=== PATIENT | female | born 1985 | race African-American/Black ===

== ENCOUNTER 2018-11-21 06:51 | Day surgery (SDC) | payer OTHER ==
[2018-11-21] VITALS (14 sets, daily range): BP systolic 111–124; BP diastolic 70–90; PULSE 65–76; RESP 13–22; Ht 158.8 cm; Wt 91.2 kg
[~2018-11-21] VITALS: Ht 158.8 cm; Wt 91.2 kg
[2018-11-21] MEDS ORDERED: LACTATED RINGER'S 1,000 ML IV SCH (08:00)
--- NOTE | 2018-11-21 08:08 | HPN ---
Date/Time of Note Date/Time of Note DATE: 11/21/18 TIME: 08:08 Interval H&P Admission Note Pt. seen H&P reviewed: No system changes JOSE EDEN MD Nov 21, 2018 08:08
--- NOTE | 2018-11-21 09:30 | PREAC ---
Date/Time of Note Date/Time of Note DATE: 11/21/18 TIME: 09:29 Anesthesia Eval and Record Evaluation Time Pre-Procedure Interview DATE: 11/21/18 TIME: 09:29 Age 33 Sex female NPO: 8 hrs Preoperative diagnosis Right knee bucket handle lateral meniscus tear Planned procedure Operative arthroscopy, medial and lateral meniscal repair, chondroplasty Past Medical History Past Medical History: Includes Pulm: Asthma GI: Obesity Surgery & Anesthesia Issues No known issue Meds Anticoagulation: No Beta Andreina within 24 hr: No Reason Beta Andreina not given: Pt. not on B-Andreina No Active Prescriptions or Reported Meds Current Medications Lactated Ringer's 1,000 ml @ 25 mls/hr Q24H IV Last administered on 11/21/18at 08:11; Admin Dose 25 MLS/HR; Start 11/21/18 at 08:00 Meds reviewed: Yes Allergies Coded Allergies: No Known Drug Allergies (Verified Allergy, Unknown, 11/17/18) Allergies Reviewed: Yes Labs/Studies Labs Reviewed: Reviewed by anesthesiologist test: Negative Pre-procedure Exam Last vitals Vital Signs Date Temp Pulse Resp B/P (MAP) Pulse Ox O2 O2 Flow FiO2 Time Delivery Rate 11/21/18 97.6 76 20 124/90 Room Air 08:02 (101) Airway: Adequate mouth opening Mallampati: Mallampati II Teeth: Normal Lung: Normal Heart: Normal ASA Physical Status ASA physical status: 2 Emergency: None Planned Anesthetic General/MAC: LMA Planned Pain Management Parenteral pain med Pre-operative Attestations Prior to commencing anesthesia and surgery, the patient was re-evaluated, there was verification of: *The patient's identity *The results of appropriate recent lab work and preoperative vital signs *The above evaluation not changing prior to induction *Anesthetic plan, risk benefits, alternative and complications discussed with patient/family; questions answered; patient/family understands, accepts and wishes to proceed. DAMIÁN BARAJAS MD Nov 21, 2018 09:30
[2018-11-21] MEDS ORDERED: ROPIVACAINE 0.5 % 30 ML VIAL ONE (10:01)
[2018-11-21] MEDS ORDERED: MEPERIDINE 100 MG INJ ONE (10:15)
[2018-11-21] MEDS ORDERED: CEFAZOLIN 1 GM INJ ONE (10:15)
[2018-11-21] MEDS ORDERED: PROPOFOL 20 ML ONE (10:15)
[2018-11-21] MEDS ORDERED: LIDOCAINE 2% (SDV) 5 ML INJ ONE (10:15)
[2018-11-21] MEDS ORDERED: ONDANSETRON 4 MG INJ ONE (10:16)
[2018-11-21] MEDS ORDERED: METOCLOPRAMIDE 10 MG INJ ONE (10:16)
[2018-11-21] MEDS ORDERED: MEPERIDINE 25 MG INJ IV PRN (11:00)
[2018-11-21] MEDS ORDERED: EPHEDrine 25 MG/5 ML SYG IV PRN (11:00)
[2018-11-21] MEDS ORDERED: METOCLOPRAMIDE 10 MG INJ IV PRN (11:00)
[2018-11-21] MEDS ORDERED: OXYCODONE/ACETAMINOPHEN (5/325) TAB PO PRN ×2 (11:00)
[2018-11-21] MEDS ORDERED: ONDANSETRON 4 MG INJ IV PRN (11:00)
[2018-11-21] MEDS ORDERED: LABETALOL HCL 20MG INJ IV PRN (11:00)
[2018-11-21] MEDS ORDERED: HYDROmorphONE 1 MG/5 ML IV SYRINGE IV PRN ×3 (11:00)
[2018-11-21] MEDS ORDERED: MIDAZOLAM 1 MG/ML 2 ML INJ IV PRN (11:00)
[2018-11-21] MEDS ORDERED: FENTAnyl 50 MCG/ML VIAL IV PRN ×3 (11:00)
[2018-11-21] MEDS ORDERED: hydrALAzine 20 MG INJ IV PRN (11:00)
[2018-11-21] MEDS ORDERED: DIPHENHYDRAMINE 50 MG INJ IV PRN (11:00)
[2018-11-21] MEDS ORDERED: morphine 2 MG INJ IV PRN (13:00)
[2018-11-21] MEDS ORDERED: KETOROLAC 30 MG INJ IV SCH (13:00)
--- NOTE | 2018-11-21 13:37 | PAC ---
Date/Time of Note Date/Time of Note DATE: 11/21/18 TIME: 13:36 Post-Anesthesia Notes Post-Anesthesia Note Last documented vital signs Vital Signs Date Temp Pulse Resp B/P (MAP) Pulse Ox O2 O2 Flow FiO2 Time Delivery Rate 11/21/18 70 15 119/75 98 Room Air 12:59 (90) 11/21/18 98.0 12:13 11/21/18 8.0 12:03 Activity: WNL Respiratory function: WNL Cardiovascular function: WNL Mental status: Baseline Pain reasonably controlled: Yes Hydration appropriate: Yes Nausea/Vomiting absent: Yes Comments BT: 98.4 DAMIÁN BARAJAS MD Nov 21, 2018 13:37
--- NOTE | 2018-11-28 12:21 | QN ---
Documentation Job number: [id number] JOSE EDEN MD Nov 28, 2018 12:21
--- NOTE | 2018-11-28 18:54 | OPR ---
DATE OF OPERATION: 11/21/2018 PREOPERATIVE DIAGNOSIS: Right knee bucket handle lateral meniscus tear. POSTOPERATIVE DIAGNOSIS: Right knee bucket handle lateral meniscus tear. OPERATION PERFORMED: Right knee arthroscopy with lateral meniscal repair, chondroplasty. SURGEON: Finn Eden MD SCIENTIST/ENGINEER: None. ANESTHESIA: General. IMPLANTS: Meniscal cinch and PRP Spun at 6% Hct TT: 61 hour at 200 mmHg. INDICATIONS: The patient is a 33-year-old female who sustained a right knee bucket handle lateral meniscal tear. The knee is now currently locked and unable to range of motion. Her knee is dry. Risk Note: Patient was explained the risks and benefits of surgery and the patient's nav[place] language including not limited to infection, bleeding, injury to blood vessels, nerves, ligaments or tendons. Risks of anesthesia, deep vein thrombosis and need for reduce future surgery. Patient acknowledged these risk by signing the surgical consent form. OPERATIVE NOTE: The correct operative site was noted and marked in the preoperative holding area. The patient was then brought back into the operative theater, placed supine on the operative table. Right knee was examined under anesthesia. Range of motion was 0-120. There is no varus or valgus or anterior or posterior instability. There is crepitus noticed at the patellofemoral joint. Tourniquet was then placed on the operative extremity thigh non-sterilely. Patient was then given preoperative antibiotics and then prepped and draped in normal sterile fashion. A timeout was taken and all parties in the room agreed it was the correct patient, correct extremity and correct procedure. Standard anterior lateral portal was created and the knee joint was entered with a blunt tipped trocar, followed by 30 arthroscope. Inflow was achieved with a pump and the pressure maintained at approximately 50 mmHg. A routine arthroscopic surgery was performed. Suprapatella pouch was unremarkable. The undersurface of the patella showed minimal chondromalacia The medial and lateral gutters were visualized. There were no loose bodies seen. There is an inflamed hypertrophic plica noted in the anterior and superior medial aspect of the knee. The popliteus hiatus was entered and was normal. Lateral compartment was entered and grade 1 chondromalacia was seen on the lateral tibial plateau and femoral condyle. Scope was then brought into the intercondylar notch and an anteromedial portal was made. The lateral meniscus was flipped into the intercondylar notch. Shaver was brought into the knee and small amount of fat pad and scar tissue was initially gently debrided. The anterior cruciate ligament was intact and probed. The knee was brought into a valgus position and the medial compartment was entered. The articular surface of the medial femoral condyle and medial tibial plateau revealed minimal chondromalacia. Chondroplasty was then carried out along the weightbearing aspect of the medial femoral condyle, medial tibial plateau, taking care to remove only loose articular cartilage debris and preserve functional articular cartilage. The lateral compartment was reentered and the loose chondral debris was debrided with motorized shaver. The lateral meniscus was then probed and reduced with an obturator back into its lateral compartment. The meniscus was torn off the capsule and the capsular rim was rasped. It was then reduced and held in position with an 0 PDS suture. It was then repaired with a Ceterix meniscal repair device and an Arthrex meniscal cinch device. The motorized shaver and basket biters were used to smooth the remaining meniscal rim, with care to maintain the peripheral meniscal rim. A probe was introduced and this was carefully probed and was found to be stable. Attention was then directed back to the patella femoral joint and a chondroplasty was carried out along the weightbearing aspect of the trochlea and undersurface of the patella to again remove loose debris and maintain functional active articular cartilage. The knee was then irrigated with additional 2 L of lactated Ringers solution. Excess fluid was then drained. Range of motion was then attempted showing 0- 125 degrees of motion The portal sites were closed with 4-0 Monocryl and Steri-Strips and dressed with Xeroform and triple antibiotic ointment. The knee was then injected with platelet rich plasma spun at 6% hematocrit at the site of the meniscal repair.. A platelet poor soaked sterile dressing was then applied, followed by a compressive bulky soft bandage and an KVNG Wrap. A TROM brace was placed over the knee locked in full extension. At the completion of the surgery patient had palpable pulses, soft arms and brisk cap refill. The patient tolerated the procedure well and was taken to the PACU without any complications. All sponge and needle counts were correct. Patient will begin pain medicine and 48 hours of antibiotics as well as aspirin 81 mg for the duration of 4 weeks postoperatively Dictated By: FINN EDEN MD EIF/NTS Conf#: [id number] DID#: [id number] [facility]
== END 2018-11-21 14:35 | disposition home or self-care (01) ==
LOC: SDS 06:51
PROVIDERS: ATTEND Orthopaedic Surgery
DX: S83.251D Bucket-handle tear of lateral meniscus, current injury, right knee, subsequent encounter (principal); X58.XXXD Exposure to other specified factors, subsequent encounter; M94.261 Chondromalacia, right knee; J45.909 Unspecified asthma, uncomplicated
CPT/HCPCS: 29881; 82306; 84703; J0690; J2175; J2405; J2765; J2795; J3010; J1200